=== PATIENT | female | born 1940 | race Caucasian/White ===

== ENCOUNTER 2018-01-24 16:04 | Inpatient (IN) | payer MEDICARE, BC ==
[~2018-01-24] VITALS: Ht 160 cm; Wt 83.4 kg
[~2018-01-24 16:04] MED LIST: ASPI325 PO; ASPI325EC PO; ASPI81CH; ASPI81EC; Avapro300 MG; BACI500TO; BACI500TO OD; BENZ2 PO; Buspirone HCl7.5 MG PO; CALCA500CH PO; CALMAGZIN; CARV6.25 PO; CITA20; CLOP75; CLOP75 PO; CPAP; CYCL10 PO; Carvedilol12.5 MG PO; DESO.05TCA TP; DONE10 PO; ENSURE ORIGINA237 ML PO; ERGO400 PO; FLUC150A PO; GLUCHON; HALO5 PO; ICY HOT BALM; IRBE150; IRBE150 PO; IRBE75; ISOMON60ER PO; Isosorbide Mono60 MG PO; KETO10 PO; KETO120T TOP; KETO15TC TOP; LABE100; LABE100 PO; LORA1 PO; MULVITMIND PO; NITR.4SL SL; NYSTATIN; Norco 5-325 Ta1 EACH PO; OMACOR; OMEG1CAP30 PO; PRAV20 PO; PSYL5.85P PO; Pravastatin Sod40 MG PO; RANI150; RANI150 PO; RANO500T PO; ROSU5 PO; Refresh Eye Dr1 EACH BOTHEYES; TIMO.5OPSO; VALSARTAN160 MG PO; VENL37.5ER PO; [UNRECOGNIZED DRUG - OTHER]
[2018-01-24 17:17] LABS: BASOPHILS ABSOLUTE AUTO 0.05 K/mm3 (0.00-0.23); BASOPHILS PERCENT AUTO 1 % (0-2); EOSINOPHILS ABSOLUTE AUTO 0.24 K/mm3 (0.00-0.68); EOSINOPHILS PERCENT AUTO 3 % (0-6); Hematocrit 44.3 % (33.0-51.0); Hemoglobin 14.4 g/dL (11.5-16.0); IMMATURE GRAN ABSOLUTE AUTO 0.02 K/mm3 (0.00-0.10); IMMATURE GRAN PERCENT AUTO 0 % (0-1); LYMPHOCYTES ABSOLUTE AUTO 1.44 K/mm3 (0.84-5.20); LYMPHOCYTES PERCENT AUTO 20 % (21-46); MONOCYTES ABSOLUTE AUTO 0.69 K/mm3 (0.16-1.47); MONOCYTES PERCENT AUTO 10 % (4-13); Mean Corpuscular HGB 29.4 pg (26.0-34.0); Mean Corpuscular HGB Conc 32.5 g/dL (31.5-36.5); Mean Corpuscular Volume 91 fL (80-100); Mean Platelet Volume 10.9 fL (9.1-12.4); NEUTROPHILS ABSOLUTE AUTO 4.74 K/mm3 (1.96-9.15); NEUTROPHILS PERCENT AUTO 66 % (41-73); Platelet Count 202 K/mm3 (150-400); RDW Coefficient Variation 13.5 % (11.7-14.2); RDW Standard Deviation 45.1 fL (35.1-46.3); Red Blood Cell Count 4.89 M/mm3 (3.80-5.20); White Blood Cell Count 7.18 K/mm3 (4.00-11.30)
[2018-01-24 17:33] LABS: Albumin, Blood 3.6 g/dL (3.4-5.0); Albumin/Globulin Ratio 0.9 (0.8-1.8); Bilirubin, Total 0.7 mg/dL (0.1-1.0); Bun/Creatinine Ratio 21.2 (12.0-20.0); Calcium, Blood 9.2 mg/dL (8.5-10.1); Creatinine, Blood 1.18 mg/dL (0.40-1.00); Potassium, Blood 4.1 mmol/L (3.5-5.5); Total Protein, Blood 7.6 g/dL (6.4-8.2); Troponin I 0.049 ng/mL (0.000-0.040)
[2018-01-24] MEDS ORDERED: PRAV20 PO (17:36)
[2018-01-24] MEDS ORDERED: NITR.4SL SL (17:36)
[2018-01-24] MEDS ORDERED: LOSA25 PO (17:36)
[2018-01-24 20:04] LABS: Source, Urine Clean Catch
[2018-01-24 20:08] LABS: Appearance, Urine Clear (Clear); Bilirubin, Urine Neg (Neg); Blood, Urine Neg (Neg); Color, Urine Yellow (P-Yellow); Glucose Qualitative, Urine Neg (Neg); Ketones, Urine Neg (Neg); Leukocyte Esterase, Urine 1+ (Neg); Nitrite, Urine Neg (Neg); Protein, Urine Neg (Neg); Specific Gravity, Urine 1.015 (1.003-1.022); Urobilinogen, Urine NORM (Normal); pH, Urine 6.5 (5.0-8.0)
[2018-01-24 20:19] LABS: Bacteria Rare /hpf; Red Blood Cells, Urine Not Seen /hpf (0-2); Squamous Epithelial Cells Few /hpf (Few)
[2018-01-24 21:28] LABS: Prothrombin Time Results 10.3 Sec (9.7-11.5)
[2018-01-25 05:36] LABS: Hematocrit 39.5 % (33.0-51.0); Hemoglobin 12.9 g/dL (11.5-16.0); Mean Corpuscular HGB 29.3 pg (26.0-34.0); Mean Corpuscular HGB Conc 32.7 g/dL (31.5-36.5); Mean Corpuscular Volume 90 fL (80-100); Mean Platelet Volume 11.1 fL (9.1-12.4); Platelet Count 176 K/mm3 (150-400); RDW Coefficient Variation 13.4 % (11.7-14.2); RDW Standard Deviation 44.7 fL (35.1-46.3); Red Blood Cell Count 4.41 M/mm3 (3.80-5.20); White Blood Cell Count 7.14 K/mm3 (4.00-11.30)
[2018-01-25 06:16] LABS: Bun/Creatinine Ratio 22.3 (12.0-20.0); Calcium, Blood 9.2 mg/dL (8.5-10.1); Creatinine, Blood 1.12 mg/dL (0.40-1.00); Potassium, Blood 3.8 mmol/L (3.5-5.5)
[2018-01-26 06:05] LABS: BASOPHILS ABSOLUTE AUTO 0.06 K/mm3 (0.00-0.23); BASOPHILS PERCENT AUTO 1 % (0-2); EOSINOPHILS ABSOLUTE AUTO 0.17 K/mm3 (0.00-0.68); EOSINOPHILS PERCENT AUTO 2 % (0-6); Hematocrit 41.6 % (33.0-51.0); Hemoglobin 13.6 g/dL (11.5-16.0); IMMATURE GRAN ABSOLUTE AUTO 0.02 K/mm3 (0.00-0.10); IMMATURE GRAN PERCENT AUTO 0 % (0-1); LYMPHOCYTES ABSOLUTE AUTO 1.69 K/mm3 (0.84-5.20); LYMPHOCYTES PERCENT AUTO 20 % (21-46); MONOCYTES ABSOLUTE AUTO 0.75 K/mm3 (0.16-1.47); MONOCYTES PERCENT AUTO 9 % (4-13); Mean Corpuscular HGB 29.5 pg (26.0-34.0); Mean Corpuscular HGB Conc 32.7 g/dL (31.5-36.5); Mean Corpuscular Volume 90 fL (80-100); Mean Platelet Volume 10.9 fL (9.1-12.4); NEUTROPHILS ABSOLUTE AUTO 5.66 K/mm3 (1.96-9.15); NEUTROPHILS PERCENT AUTO 68 % (41-73); Platelet Count 187 K/mm3 (150-400); RDW Standard Deviation 46.5 fL (35.1-46.3); Red Blood Cell Count 4.61 M/mm3 (3.80-5.20); White Blood Cell Count 8.35 K/mm3 (4.00-11.30)
[2018-01-26 06:27] LABS: Calcium, Blood 8.9 mg/dL (8.5-10.1); Creatinine, Blood 1.28 mg/dL (0.40-1.00); Potassium, Blood 3.9 mmol/L (3.5-5.5)
[2018-01-26] MEDS ORDERED: CLOP75 PO (14:58)
[2018-01-26] MEDS ORDERED: ACET325 PO (14:58)
[2018-01-26] MEDS ORDERED: LIDO700A20 TOP (14:59)
[2018-01-26] MEDS ORDERED: ONDA4ODT PO (14:59)
[2018-01-26] MEDS ORDERED: PANT40 PO (15:00)
== END 2018-01-26 15:45 | disposition home or self-care (01) | DRG 281 ==
LOC: ER 16:04 → PCU 16:05 → ER 18:46 → PCU 18:46
PROVIDERS: Emergency Medicine; Family Medicine; Nurse Practitioner Acute Care
PROC: B2111ZZ Fluoroscopy of Multiple Coronary Arteries using Low Osmolar Contrast (ICD-10-PCS; principal; 2018-01-25)
DX: I21.4 Non-ST elevation (NSTEMI) myocardial infarction (principal); I25.810 Atherosclerosis of coronary artery bypass graft(s) without angina pectoris; I65.29 Occlusion and stenosis of unspecified carotid artery; I36.1 Nonrheumatic tricuspid (valve) insufficiency; F03.90 Unspecified dementia, unspecified severity, without behavioral disturbance, psychotic disturbance, mood disturbance, and anxiety; Z95.1 Presence of aortocoronary bypass graft; I34.0 Nonrheumatic mitral (valve) insufficiency; E78.5 Hyperlipidemia, unspecified; G47.33 Obstructive sleep apnea (adult) (pediatric); I73.00 Raynaud's syndrome without gangrene; K21.9 Gastro-esophageal reflux disease without esophagitis; Z66 Do not resuscitate; E66.9 Obesity, unspecified; I12.9 Hypertensive chronic kidney disease with stage 1 through stage 4 chronic kidney disease, or unspecified chronic kidney disease; N18.2 Chronic kidney disease, stage 2 (mild); Z68.32 Body mass index [BMI] 32.0-32.9, adult; Z87.891 Personal history of nicotine dependence; Z79.82 Long term (current) use of aspirin; Z79.899 Other long term (current) drug therapy; Z88.8 Allergy status to other drugs, medicaments and biological substances; Z88.5 Allergy status to narcotic agent; Z88.7 Allergy status to serum and vaccine; Z95.0 Presence of cardiac pacemaker
CPT/HCPCS: 36415; 71046; 80048; 80053; 81001; 83880; 84484; 85025; 85027; 85610; 85730; 87086; 87147; 93005; 93010; 93306; 93455; 94660; 94762; 96374; 96376; 99285-25; C1769; C1894; G0378; J0360; J1644; J2250; J3010; J7030; Q9967

== ENCOUNTER 2018-03-14 07:19 | Day surgery (SDC) | payer MEDICARE, BC ==
[~2018-03-14] VITALS: Ht 154.9 cm; Wt 83.0 kg
[~2018-03-14 07:19] MED LIST changes: +ACET325 PO; +LIDO700A20 TOP; +LOSA25 PO; +ONDA4ODT PO; +PANT40 PO
== END 2018-03-14 09:45 | disposition home or self-care (01) ==
LOC: MHTC 07:19
DX: I25.5 Ischemic cardiomyopathy (principal); Z88.8 Allergy status to other drugs, medicaments and biological substances
CPT/HCPCS: 33284; J2250; J7040; J7120

== ENCOUNTER 2018-06-21 14:21 | Inpatient (IN) | payer MEDICARE, BC ==
[~2018-06-21] VITALS: Ht 160 cm; Wt 84.4 kg
[~2018-06-21 14:21] MED LIST changes: -Carvedilol12.5 MG PO; -LOSA25 PO; +LOSARTAN POTAS100 MG PO
[2018-06-21 15:27] LABS: BASOPHILS ABSOLUTE AUTO 0.02 K/mm3 (0.00-0.23); BASOPHILS PERCENT AUTO 0 % (0-2); EOSINOPHILS ABSOLUTE AUTO 0.02 K/mm3 (0.00-0.68); EOSINOPHILS PERCENT AUTO 0 % (0-6); Hematocrit 46.1 % (33.0-51.0); Hemoglobin 15.5 g/dL (11.5-16.0); IMMATURE GRAN ABSOLUTE AUTO 0.05 K/mm3 (0.00-0.10); IMMATURE GRAN PERCENT AUTO 1 % (0-1); LYMPHOCYTES ABSOLUTE AUTO 1.02 K/mm3 (0.84-5.20); LYMPHOCYTES PERCENT AUTO 9 % (21-46); MONOCYTES ABSOLUTE AUTO 0.99 K/mm3 (0.16-1.47); MONOCYTES PERCENT AUTO 9 % (4-13); Mean Corpuscular HGB 29.6 pg (26.0-34.0); Mean Corpuscular HGB Conc 33.6 g/dL (31.5-36.5); Mean Corpuscular Volume 88 fL (80-100); Mean Platelet Volume 11.8 fL (9.1-12.4); NEUTROPHILS ABSOLUTE AUTO 8.94 K/mm3 (1.96-9.15); NEUTROPHILS PERCENT AUTO 81 % (41-73); Platelet Count 158 K/mm3 (150-400); RDW Coefficient Variation 13.8 % (11.7-14.2); RDW Standard Deviation 44.6 fL (35.1-46.3); Red Blood Cell Count 5.24 M/mm3 (3.80-5.20); White Blood Cell Count 11.04 K/mm3 (4.00-11.30)
[2018-06-21] MEDS ORDERED: Pravastatin Sod80 MG PO (15:27)
[2018-06-21 16:08] LABS: Albumin, Blood 3.2 g/dL (3.4-5.0); Albumin/Globulin Ratio 0.7 (0.8-1.8); Bun/Creatinine Ratio 14.2 (12.0-20.0); Calcium, Blood 9.6 mg/dL (8.5-10.1); Creatinine, Blood 3.44 mg/dL (0.40-1.00); Globulin, Blood 4.6 g/dL (2.2-4.0); Total Protein, Blood 7.8 g/dL (6.4-8.2)
[2018-06-21 17:00] LABS: Magnesium, Blood 2.4 mg/dL (1.6-2.4); Phosphorus, Blood 3.1 mg/dL (2.5-4.9)
[2018-06-21] MEDS ORDERED: NITR.4SL SL (18:23)
--- NOTE | 2018-06-21 18:25 | NUR ---
PT ADMITTED PT ADMITTED AT 1755. PT IN STABLE CONDITION WITH VSS. PT ORIENTED TO ROOM. PT AWARE OF PT ROOM PLACEMENT. WILL CONTINUE TO MONITOR UNTIL TURNOVER UNTIL COMPLETE.
--- NOTE | 2018-06-21 20:37 | NUR ---
RT SETTING UP CPAP. KCL 29 MEQ INFUSING AT 100 mL/HR. PATIENT REPORTS SHE HAS HAD A LONG DAY AND WAS AGITATED MOST OF THE DAY. PATIENT REPORTS CALMING DOWN AND WANTS TV BACKGROUND NOISE TO HELP SLEEP. CALL LIGHT IN REACH.
[2018-06-21 21:07] LABS: Source, Urine Clean Catch
[2018-06-21 21:11] LABS: Appearance, Urine Clear (Clear); Bilirubin, Urine Neg (Neg); Blood, Urine 1+ (Neg); Color, Urine Yellow (P-Yellow); Glucose Qualitative, Urine Neg (Neg); Ketones, Urine Neg (Neg); Leukocyte Esterase, Urine 1+ (Neg); Nitrite, Urine Neg (Neg); Protein, Urine 1+ (Neg); Specific Gravity, Urine 1.015 (1.003-1.022); Urobilinogen, Urine NORM (Normal)
[2018-06-21 21:19] LABS: Bacteria Few /hpf; Red Blood Cells, Urine Not Seen /hpf (0-2); Squamous Epithelial Cells Few /hpf (Few)
--- NOTE | 2018-06-21 22:11 | NUR ---
UA COLLECTED AND RESPIRATORY PANEL SENT TO LAB.
[2018-06-21 23:28] LABS: Adenovirus Not Detected (NOT DETECT); Bordetella pertussis Not Detected (NOT DETECT); Chlamydophila pneumoniae Not Detected (NOT DETECT); Coronavirus 229E Not Detected (NOT DETECT); Coronavirus HKU1 Not Detected (NOT DETECT); Coronavirus NL63 Not Detected (NOT DETECT); Coronavirus OC43 Not Detected (NOT DETECT); Human Metapneumovirus Not Detected (NOT DETECT); Human Rhinovirus/Enterovirus Not Detected (NOT DETECT); Influenza A Not Detected (NOT DETECT); Influenza A/2009-H1 Not Detected (NOT DETECT); Influenza A/H1 Not Detected (NOT DETECT); Influenza A/H3 Detected (NOT DETECT); Influenza B Not Detected (NOT DETECT); Mycoplasma pneumoniae Not Detected (NOT DETECT); Parainfluenza Virus 1 Not Detected (NOT DETECT); Parainfluenza Virus 2 Not Detected (NOT DETECT); Parainfluenza Virus 3 Not Detected (NOT DETECT); Parainfluenza Virus 4 Not Detected (NOT DETECT); Respiratory Syncytial Virus Not Detected (NOT DETECT)
--- NOTE | 2018-06-21 23:36 | NUR ---
RESPIRATORY PANEL POSITIVE INFLUENZA A (H3). DROPLET PRECAUTIONS.
--- NOTE | 2018-06-21 23:45 | NUR ---
PATIENT ON CPAP STATING 96% ON CONTINUOUS PULSE OXIMETRY. KCL 20 MEQ INFUSING AT 100 mL/HR. DROPLET PRECAUTIONS. CALL LIGHT IN REACH.
--- NOTE | 2018-06-22 00:55 | NUR ---
TAMIFLU 30 MG GIVEN PER EMAR.
--- NOTE | 2018-06-22 03:39 | NUR ---
SHIFT SUMMARY PATIENT HAD NO ACUTE CHANGES THIS SHIFT. AXOX 3 W/CONFUSION AT TIMES. PATIENT WILL REPEAT STORY OF HOW SHE CAME TO THE FACILITY X 6. RESPIRATORY PANEL AND UA SENT TO LAB. POSITIVE FOR INFLUENZA A. DROPLET PRECAUTIONS AND STARTED ON TAMIFLU. PIV REMAINS INTACT. KCL INFUSING AT 100 mL/HR. RT IN TO SET UP CPAP AND CONTINUOUS PULSE OXIMETRY STATING 96% ON RA. DENIES PAIN, SOB, AND N/V. PATIENT AGITATED AT START OF SHIFT AND IS NOW COOPERATIVE WITH CARE. SHE REPORTS SHE HAD A LONG DAY. CALL LIGHT IN REACH. BED ALARM ACTIVATED. WILL CONTINUE TO MONITOR UNTIL DAY SHIFT NURSE ASSUMES CARE.
[2018-06-22 05:16] LABS: Hematocrit 39.6 % (33.0-51.0); Hemoglobin 13.3 g/dL (11.5-16.0); Mean Corpuscular HGB 29.2 pg (26.0-34.0); Mean Corpuscular HGB Conc 33.6 g/dL (31.5-36.5); Mean Corpuscular Volume 87 fL (80-100); Mean Platelet Volume 11.2 fL (9.1-12.4); Platelet Count 180 K/mm3 (150-400); RDW Standard Deviation 45.1 fL (35.1-46.3); Red Blood Cell Count 4.55 M/mm3 (3.80-5.20); White Blood Cell Count 9.83 K/mm3 (4.00-11.30)
[2018-06-22 05:38] LABS: Bun/Creatinine Ratio 18.7 (12.0-20.0); Calcium, Blood 8.4 mg/dL (8.5-10.1); Creatinine, Blood 3.37 mg/dL (0.40-1.00); Magnesium, Blood 2.2 mg/dL (1.6-2.4); Potassium, Blood 4.1 mmol/L (3.5-5.5)
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
--- NOTE | 2018-06-22 15:20 | NUR ---
COUGH PT HAS PERSISTANT COUGH WITH NO PRODUCTION. PT STATES THAT IT HURTS HER TO COUGH. DR. WRIGHT NOTIFIED & ORDERED ROBITUSSIN. TYLENOL ALSO ORDERED FOR PT PAIN/FEVER NEEDED.
--- NOTE | 2018-06-22 17:36 | NUR ---
SHIFT SUMMARY PT HAS PERIODIC EPISODES OF AGITATION. PT FREQUENTLY FORGETS WHY SHE IS IN THE HOSPITAL. WITH REORIENTATION PT DOES NOT UNDERSTAND WHY SHE IS HERE EITHER. PT CHANGED TO FULL CODE PER REQUEST BY DR. WRIGHT. PT HAS LIGHT APPETITE. PT CURRENTLY RECIEVING LR AT 100ML/HR INFUSION. PT GIVEN ZYPREXA THIS SHIFT TO ASSIST WITH AGITATION & OUTBURSTS. PT WALKING IN ROOM WITH SUPERVISION. PT STURDY ON HER FEET. NO OTHER CHANGES IN ASSESSMENT AT THIS TIME. VSS. WILL CONTINUE TO MONITOR UNTIL TURNOVER IS COMPLETE.
--- NOTE | 2018-06-22 19:39 | NUR ---
PATIENT INCREASED AGITATION. BED EXIT X 2 IN FIVE MINUTES. PATIENT PULLED PULSE OXIMETRY OFF. PULLING AT IV CORDS AND LINES. PATIENT NOT REORIENTING. BACK IN BED BED ALARM ACTIVATED.
--- NOTE | 2018-06-22 19:59 | NUR ---
BED EXIT. PATIENT CONFUSED AND TRYING TO EXIT BED. NOT ABLE TO REORIENT AT THIS TIME.
--- NOTE | 2018-06-22 20:21 | NUR ---
BED EXIT. PATIENT EXIT BED PULLING AT IV CORDS AND PULSE OXIMETRY. PATIENT REPORTS SHE WANTS TO GO TO BATHROOM WHEN SHE WAS JUST UP AND WENT WITH SMALL PARTS SHAPER OPERATOR/RN. PATIENT NOW STATES SHE IS NOT SURE WHAT SHE WANTS AND WENT BACK INTO BED. BED ALARM ACTIVATED. NOT ABLE TO ORIENT.
--- NOTE | 2018-06-22 23:52 | NUR ---
PATIENT COUGHING. GUAIFENSIN GIVEN PER EMAR. PATIENT BACK INTO BED. BED ALARM ACTIVATED.
--- NOTE | 2018-06-23 03:57 | NUR ---
SHIFT SUMMARY PATIENT AGITATED AT START OF SHIFT AND BED EXIT OVER FIVE TIMES. PULLED PULSE OXIMETRY OFF X 3. PULLED AT IV LINES AND LR STOPPED. PULLED TELE LEADS OFF. PATIENT WAS NOT ABLE TO FOLLOW DIRECTION AT THAT TIME. PATIENT MOSTLY ACTIVATED BED ALARM TO USE BSC EVEN WHEN SHE WAS JUST THERE ONE TIME WITH ESCROW SECRETARY/RN. PATIENT PULLED SELF BACK IN BED AND REPORTED SHE DID NOT KNOW WHAT SHE NEEDED. COUGHING EPISODE X ONE AND GUAFENISIN GIVEN PER EMAR. PIV REMAINS IN TACH. WRITER EDITOR REPORTS NSR, 1ST DEGREE, BBB AT 60'S. DENIES PAIN, SOB, AND N/V. ZYPEXA GIVEN X 1 AT START OF SHIFT FOR AGITATION. PATIENT FINALLY ABLE TO SLEEP AND LESS AGITATION. VSS/AFEBRILE. CALL LIGHT IN REACH. WILL CONTINUE TO MONITOR UNTIL DAY SHIFT NURSE ASSUMES CARE.
[2018-06-23 06:01] LABS: Bun/Creatinine Ratio 22.1 (12.0-20.0); Calcium, Blood 8.7 mg/dL (8.5-10.1); Creatinine, Blood 2.62 mg/dL (0.40-1.00)
--- NOTE | 2018-06-23 13:39 | NUR ---
PT UPDATE PT SLEPT MOST THE MORNING. PT JUST WOKE & ATE LUNCH. PT NOW AGITATED & DOESN'T UNDERSTAND WHY SHE IS HERE. DR. WRIGHT AWARE OF PT BEHAVIOR. PT STATED THAT SHE "NEEDS A WATER SERVER" BECAUSE SHE THINKS SHE IS BEING HELD HERE AGAINST HER WILL. DR. WRIGHT & THIS RN EXPLAINED WHY THE PT NEEDS TO BE HERE & HOW SHE IS BEING TREATED. PRN ZYPREXA GIVEN AT THIS TIME. WILL CONTINUE TO MONITOR.
--- NOTE | 2018-06-23 17:09 | NUR ---
SHIFT SUMMARY NO CHANGES IN ASSESSMENT AT THIS TIME. PT HAS LOW GRADE FEVER AT 99.3. PT BP ELEVATED THIS AFTERNOON, BUT IMPROVED FROM THIS AM. AFTERNOON COREG GIVEN. PT CONTINUES TO HAVE CONFUSION & FORGETS WHY SHE IS HERE. PT EXPECTED TO DC TOMORROW PER DR. WRIGHT. FAMILY AWARE OF THIS PLAN. NO OTHER CHANGES IN ASSESSMENT. PRN ZYPREXAGIVEN TWICE THIS SHIFT. PT CURRENTLY RESTING IN BED. PT REFUSED SHOWER & TO GET UP IN CHAIR THROUGHOUT THIS SHIFT. WILL CONTINUE TO MONITOR UNTIL TURNOVER IS COMPLETE.
--- NOTE | 2018-06-24 06:00 | NUR ---
SHIFT SUMMARY: NO ACUTE EVENTS TONIGHT. PT SLEPT T/O THE NIGHT. ADMINSTERED PRN ZYPREXA FOR EPISODE OF AGITATION AND RESTLESSNESS AT START OF SHIFT. PT RESPONDED WELL. SBA TO BR; STEADY GAIT; CONFUSION AND IMPUSLIVITY, BED ALARM ON DURING THE NIGHT FOR SAFETY. PT IS ALERT TO SELF ONLY, WHICH IS ABOUT BASELINE PER DAYSHIFT RN REPORT. PLEASANT AND COOPERATIVE c CARE. ROBITUSSIN ADMINISTERED 1X FOR COUGH PER PT REQUEST; MED PULLED TWICE FROM [facility]; WASTED FIRST DOSE PT SPILT ON SELF. PT RECIEVED RELIEF FROM COUGH c THIS MED. PLAN TO D/C BACK TO HOME c . WILL CONT TO MONITOR AND PROVIDE CARE UNTIL PRESUMED BY ONCOMING RN.
[2018-06-24 06:28] LABS: Bun/Creatinine Ratio 21.3 (12.0-20.0); Calcium, Blood 9.2 mg/dL (8.5-10.1); Creatinine, Blood 2.07 mg/dL (0.40-1.00)
[2018-06-24] MEDS ORDERED: ASPI81CH PO (11:06)
[2018-06-24] MEDS ORDERED: CEFU250T47 PO (11:07)
[2018-06-24] MEDS ORDERED: Tamiflu30 MG PO (11:08)
[2018-06-24] MEDS ORDERED: AMLO5 PO (11:08)
[2018-06-24] MEDS ORDERED: Q-Tussin100 MG/5 M PO (11:08)
--- NOTE | 2018-06-24 13:51 | NUR ---
DISCHARGE PT DISCHARGED TO HOME. THIS RN EXPLAINED DISCHARGE INSTRUCTIONS AND MEDICATIONS TO PT AND PT'S SPOUSE. THEY REPORT THEY UNDERSTAND. PT'S MEDICATIONS FAXED TO [facility] PER PT REQUEST. PT TRANSFERRED TO PRIVATE VEHICLE VIA WHEELCHAIR BY F[employer] OPT[employer] ENGINEER. PT'S BELONGINGS WITH PT AND PT'S SPOUSE.
== END 2018-06-24 13:34 | disposition home or self-care (01) | DRG 682 ==
LOC: ER 14:21 → MEDS 17:01 → ENPENDDIS 06-24 10:00 → MEDS 06-24 13:34
PROVIDERS: Internal Medicine; Nurse Practitioner Acute Care; ADMIT Internal Medicine
DX: N17.9 Acute kidney failure, unspecified (principal); G92 Toxic encephalopathy; N39.0 Urinary tract infection, site not specified; I12.0 Hypertensive chronic kidney disease with stage 5 chronic kidney disease or end stage renal disease; F03.91 Unspecified dementia, unspecified severity, with behavioral disturbance; J11.1 Influenza due to unidentified influenza virus with other respiratory manifestations; E78.5 Hyperlipidemia, unspecified; N18.5 Chronic kidney disease, stage 5; I25.5 Ischemic cardiomyopathy; G47.33 Obstructive sleep apnea (adult) (pediatric); Z95.1 Presence of aortocoronary bypass graft; I25.10 Atherosclerotic heart disease of native coronary artery without angina pectoris; E86.0 Dehydration; K21.9 Gastro-esophageal reflux disease without esophagitis; I73.00 Raynaud's syndrome without gangrene; Z87.891 Personal history of nicotine dependence; Z66 Do not resuscitate
CPT/HCPCS: 36415; 70450; 71046; 76770; 80048; 80053; 81001; 82550; 82570; 82947; 83735; 84100; 84300; 85025; 85027; 87086; 87147; 87486; 87581; 87633; 87798; 93005; 93010; 94660; 94762; 96360; 97110; 97161; 99285-25; J1650; J3480; J7120

== ENCOUNTER 2018-08-06 13:39 | Observation (INO) | payer MEDICARE, BC ==
[~2018-08-06] VITALS: Ht 160 cm; Wt 80.1 kg
[~2018-08-06 13:39] MED LIST changes: +ASPI81CH PO; +CEFU250T47 PO; -DONE10 PO; +Pravastatin Sod80 MG PO; +Q-Tussin100 MG/5 M PO; +Tamiflu30 MG PO
[2018-08-06 14:43] LABS: BASOPHILS ABSOLUTE AUTO 0.09 K/mm3 (0.00-0.23); BASOPHILS PERCENT AUTO 1 % (0-2); EOSINOPHILS ABSOLUTE AUTO 0.25 K/mm3 (0.00-0.68); EOSINOPHILS PERCENT AUTO 4 % (0-6); Hematocrit 44.4 % (33.0-51.0); Hemoglobin 14.8 g/dL (11.5-16.0); IMMATURE GRAN ABSOLUTE AUTO 0.02 K/mm3 (0.00-0.10); IMMATURE GRAN PERCENT AUTO 0 % (0-1); LYMPHOCYTES ABSOLUTE AUTO 1.19 K/mm3 (0.84-5.20); LYMPHOCYTES PERCENT AUTO 17 % (21-46); MONOCYTES ABSOLUTE AUTO 0.86 K/mm3 (0.16-1.47); MONOCYTES PERCENT AUTO 12 % (4-13); Mean Corpuscular HGB 29.4 pg (26.0-34.0); Mean Corpuscular HGB Conc 33.3 g/dL (31.5-36.5); Mean Platelet Volume 11.7 fL (9.1-12.4); NEUTROPHILS ABSOLUTE AUTO 4.55 K/mm3 (1.96-9.15); NEUTROPHILS PERCENT AUTO 65 % (41-73); Platelet Count 249 K/mm3 (150-400); RDW Coefficient Variation 14.7 % (11.7-14.2); RDW Standard Deviation 47.5 fL (35.1-46.3); Red Blood Cell Count 5.04 M/mm3 (3.80-5.20); White Blood Cell Count 6.96 K/mm3 (4.00-11.30)
[2018-08-06 14:45] LABS: Mean Corpuscular Volume 88 fL (80-100)
[2018-08-06 14:55] LABS: Albumin, Blood 3.5 g/dL (3.4-5.0); Albumin/Globulin Ratio 0.8 (0.8-1.8); Bilirubin, Total 1.1 mg/dL (0.1-1.0); Bun/Creatinine Ratio 14.2 (12.0-20.0); Calcium, Blood 9.7 mg/dL (8.5-10.1); Creatinine, Blood 1.27 mg/dL (0.40-1.00); Globulin, Blood 4.3 g/dL (2.2-4.0); Potassium, Blood 3.7 mmol/L (3.5-5.5); Total Protein, Blood 7.8 g/dL (6.4-8.2); Troponin I 0.074 ng/mL (0.000-0.040)
[2018-08-06] MEDS ORDERED: AMLO5 PO (16:27)
[2018-08-06] MEDS ORDERED: DONE10 PO (16:27)
[2018-08-06] MEDS ORDERED: CARV6.25 PO (18:50)
--- NOTE | 2018-08-06 20:17 | NUR ---
1900 ASSUMED CARE OF ANDER, LAYING IN BED TALKING ABOUT BEING UNSURE WGYR SHE IS HERE. SEE Entelo FOR FULL ASSESSMENT. BED IN LOW POSITION, CALL LIGHT IN REACH, PLANS FOR THIS SHIFT DISSCUSSED.
[2018-08-06 20:37] LABS: International Normalized Ratio 0.99; Prothrombin Time Results 10.5 Sec (9.7-11.5)
[2018-08-06 22:18] LABS: Source, Urine Clean Catch
[2018-08-06 22:20] LABS: Bilirubin, Urine Neg (Neg); Blood, Urine Neg (Neg); Glucose Qualitative, Urine Neg (Neg); Ketones, Urine Neg (Neg); Leukocyte Esterase, Urine 2+ (Neg); Nitrite, Urine Neg (Neg); Protein, Urine 2+ (Neg); Urobilinogen, Urine NORM (Normal)
[2018-08-06 22:22] LABS: Appearance, Urine Clear (Clear); Color, Urine Yellow (P-Yellow)
[2018-08-06 22:27] LABS: Bacteria Mod /hpf; Hyaline Casts 0-2 /lpf (0-2); Red Blood Cells, Urine 0-2 /hpf (0-2); Squamous Epithelial Cells Few /hpf (Few)
--- NOTE | 2018-08-07 00:20 | NUR ---
4313 RAPID RESPONSE CALL BY FELLOW STAFF, PATIENT ATTEMPTED TO GET UP FOM BED AND PASSED OUT. PCT WAS AT SIDE AND COAXED HER ON TO BED BEFORE SHE FELL, HR DROPPED SUDDENLY TO 50 BPM AND BP DROPPED TO 90'S SYSTOLIC. PATIENT PUT IN [place] POSTION AND STARTED REPONDING TO VERB STIMULI. STATES SHE JUST WANTED TO SLEEP AND DID NOT REMEMBER WHAT HAPPENED. BP RETURNED TO ABOVE 100 SYSTOLIC, HR 70 YO 80'S. BED PUT IN LOW POSTION, CALL LIGHT IN REACH BED ALARM ON, WILL MONITOR.
[2018-08-07 02:12] LABS: Hematocrit 38.9 % (33.0-51.0); Hemoglobin 12.6 g/dL (11.5-16.0); Mean Corpuscular HGB 29.2 pg (26.0-34.0); Mean Corpuscular HGB Conc 32.4 g/dL (31.5-36.5); Mean Corpuscular Volume 90 fL (80-100); Mean Platelet Volume 10.8 fL (9.1-12.4); Platelet Count 191 K/mm3 (150-400); RDW Coefficient Variation 14.9 % (11.7-14.2); RDW Standard Deviation 49.8 fL (35.1-46.3); Red Blood Cell Count 4.31 M/mm3 (3.80-5.20); White Blood Cell Count 7.51 K/mm3 (4.00-11.30)
[2018-08-07 02:30] LABS: Bun/Creatinine Ratio 15.3 (12.0-20.0); Calcium, Blood 8.9 mg/dL (8.5-10.1); Creatinine, Blood 1.57 mg/dL (0.40-1.00); Potassium, Blood 3.7 mmol/L (3.5-5.5)
--- NOTE | 2018-08-07 11:29 | NUR ---
Echocardiogram completed.
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
--- NOTE | 2018-08-07 18:10 | NUR ---
EVENING NOTE PT AWAKE AND ALERT TO SELF. SHE REALLY ENJOYED HER NAP. SITTING UP EATING DINNER. EVENING COREG GIVEN. NO SYNCOPAL EPISODES TODAY. BED ALARM ON. PT UP TO BSC TO VOID. TOLERATING WELL. GAIT STEADY. CONTINUE POT.
[2018-08-08 04:14] LABS: BASOPHILS ABSOLUTE AUTO 0.04 K/mm3 (0.00-0.23); BASOPHILS PERCENT AUTO 1 % (0-2); EOSINOPHILS ABSOLUTE AUTO 0.53 K/mm3 (0.00-0.68); EOSINOPHILS PERCENT AUTO 9 % (0-6); Hemoglobin 12.7 g/dL (11.5-16.0); IMMATURE GRAN ABSOLUTE AUTO 0.01 K/mm3 (0.00-0.10); IMMATURE GRAN PERCENT AUTO 0 % (0-1); LYMPHOCYTES ABSOLUTE AUTO 1.15 K/mm3 (0.84-5.20); LYMPHOCYTES PERCENT AUTO 20 % (21-46); MONOCYTES ABSOLUTE AUTO 0.65 K/mm3 (0.16-1.47); MONOCYTES PERCENT AUTO 11 % (4-13); Mean Corpuscular HGB 29.2 pg (26.0-34.0); Mean Corpuscular HGB Conc 32.6 g/dL (31.5-36.5); Mean Corpuscular Volume 90 fL (80-100); Mean Platelet Volume 10.7 fL (9.1-12.4); NEUTROPHILS ABSOLUTE AUTO 3.41 K/mm3 (1.96-9.15); NEUTROPHILS PERCENT AUTO 59 % (41-73); Platelet Count 194 K/mm3 (150-400); RDW Coefficient Variation 15.1 % (11.7-14.2); RDW Standard Deviation 50.4 fL (35.1-46.3); Red Blood Cell Count 4.35 M/mm3 (3.80-5.20); White Blood Cell Count 5.79 K/mm3 (4.00-11.30)
[2018-08-08 04:31] LABS: Bun/Creatinine Ratio 17.8 (12.0-20.0); Calcium, Blood 9.2 mg/dL (8.5-10.1); Creatinine, Blood 1.46 mg/dL (0.40-1.00); Potassium, Blood 4.1 mmol/L (3.5-5.5)
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
--- NOTE | 2018-08-08 15:45 | NUR ---
discharge NOte: Pt has discharge orders. Her and her were given discharge instructions. Pt states "I still don't even know why I was here, and he just thinks it is funny!" Pt still very upset and aggitated about being here. Tried to calm Pt, but she seems very fixated. Went over dishcarge medicaions and follow up appointments with Pt and her . Pt arguing about medicaion dosages but , who manages her medicaions, denies questions and verbalizes understanding. He also verbalized understanding of F/U appointments. IV discontinued and cath intact. Pt assisted by CAGE CASHIER with getting dressed. Left via W/C. Stable at time of discharge.
== END 2018-08-08 15:50 | disposition home or self-care (01) ==
LOC: ER 13:39 → ERHOLD 13:40 → PCU 18:25
PROVIDERS: Internal Medicine; Nurse Practitioner Acute Care; ADMIT Hospitalist
DX: R55 Syncope and collapse (principal); R77.8 Other specified abnormalities of plasma proteins; I12.9 Hypertensive chronic kidney disease with stage 1 through stage 4 chronic kidney disease, or unspecified chronic kidney disease; N18.3 Chronic kidney disease, stage 3 (moderate); I25.10 Atherosclerotic heart disease of native coronary artery without angina pectoris; E78.5 Hyperlipidemia, unspecified; K21.9 Gastro-esophageal reflux disease without esophagitis; G47.33 Obstructive sleep apnea (adult) (pediatric); F03.90 Unspecified dementia, unspecified severity, without behavioral disturbance, psychotic disturbance, mood disturbance, and anxiety; Z95.1 Presence of aortocoronary bypass graft; Z79.899 Other long term (current) drug therapy; Z79.82 Long term (current) use of aspirin; Z79.01 Long term (current) use of anticoagulants; Z88.5 Allergy status to narcotic agent; Z88.8 Allergy status to other drugs, medicaments and biological substances; Z87.891 Personal history of nicotine dependence
CPT/HCPCS: 36415; 71046; 71260; 80048; 80053; 81001; 83735; 83880; 84484; 85025; 85027; 85379; 85610; 87086; 93005; 93010; 93306; 93880; 96372; 96374-59; 99285-25; C9113; G0378; J1650; J2405; J7030; Q9967

== ENCOUNTER 2018-09-20 11:47 | Emergency (ER) | payer MEDICARE, BC ==
[~2018-09-20] VITALS: Ht 160 cm; Wt 81.7 kg
[~2018-09-20 11:47] MED LIST changes: +AMLO5 PO; +DONE10 PO
[2018-09-20] MEDS ORDERED: Aspir 8181 MG PO (12:03)
[2018-09-20] MEDS ORDERED: AMLO5 PO (12:35)
== END 2018-09-20 13:38 | disposition home or self-care (01) ==
LOC: ER 11:47
DX: M25.562 Pain in left knee (principal); M25.552 Pain in left hip; I10 Essential (primary) hypertension; J44.9 Chronic obstructive pulmonary disease, unspecified; E78.5 Hyperlipidemia, unspecified; K21.9 Gastro-esophageal reflux disease without esophagitis; Z88.5 Allergy status to narcotic agent; Z79.899 Other long term (current) drug therapy
CPT/HCPCS: 73502; 73562-LT; 99283-25

== ENCOUNTER 2019-03-07 08:30 | Day surgery (SDC) | payer MEDICARE, BC ==
[~2019-03-07 08:30] MED LIST changes: +Aspir 8181 MG PO
--- NOTE | 2019-03-07 09:10 | NUR ---
ADMISSION STARTED AT THIS TIME. PATIENT VERY CONFUSED FOCUSING ON PAST WITH THINGS BEING STOLEN. REPORTS PATIENT HAS DRANK MOST OF PREP AND SAYS PATIENT HAS HAD MANY BOWELL MOVEMENTS.
--- NOTE | 2019-03-07 10:11 | NUR ---
03/07/19 1011 WON WILKINSON History, Chart, Medications and Allergies reviewed before start of procedure.3-LEAD EKG REVIEWED WITH PHYSICIAN PRIOR TO START OF PROCEDURE.O2 VIA N/C INTACT THROUGHOUT SEDATION/PROCEDURE. O2 VIA N/C INTACT THROUGHOUT SEDATION/PROCEDURE.See Anesthesia record
--- NOTE | 2019-03-07 10:50 | NUR ---
PT TO STEP. DENIES ANY COPLAINTS. AT BEDSIDE.
--- NOTE | 2019-03-07 10:58 | NUR ---
REPORT TO FRANNIE HALE. ANGEL GRACE.
--- NOTE | 2019-03-07 11:17 | NUR ---
ASSUMED CARE OF PATIENT AND REPORT FROM ENRICO FOY RN. Patient up to Ambulate independently. Gait steady. Patient States Post-Procedure ride home has been arranged. Discharged via wheelchair to private car for ride home. Discharge instructions reviewed with patient. Patient verbalizes understanding. Copy given to patient to take home. ALL BELONINGS RETURNED TO PATIENT.
== END 2019-03-07 23:58 | disposition home or self-care (01) ==
LOC: ORSCMMR 08:30 → ORD 09:30 → ORSCMMR 23:58
PROVIDERS: Internal Medicine Gastroenterology
PROC: 0DBK8ZX Excision of Ascending Colon, Via Natural or Artificial Opening Endoscopic, Diagnostic (ICD-10-PCS; principal; 2019-03-07 09:30)
PROC: 0DBB8ZX Excision of Ileum, Via Natural or Artificial Opening Endoscopic, Diagnostic (ICD-10-PCS; principal; 2019-03-07 09:30)
PROC: 0DBL8ZX Excision of Transverse Colon, Via Natural or Artificial Opening Endoscopic, Diagnostic (ICD-10-PCS; principal; 2019-03-07 09:30)
PROC: 0DBH8ZX Excision of Cecum, Via Natural or Artificial Opening Endoscopic, Diagnostic (ICD-10-PCS; principal; 2019-03-07 09:30)
PROC: 0DBN8ZX Excision of Sigmoid Colon, Via Natural or Artificial Opening Endoscopic, Diagnostic (ICD-10-PCS; principal; 2019-03-07 09:30)
DX: Z12.11 Encounter for screening for malignant neoplasm of colon (principal); D12.0 Benign neoplasm of cecum; K57.30 Diverticulosis of large intestine without perforation or abscess without bleeding; Z86.010 Personal history of colon polyps; I25.10 Atherosclerotic heart disease of native coronary artery without angina pectoris; Z95.1 Presence of aortocoronary bypass graft; G47.33 Obstructive sleep apnea (adult) (pediatric); Z79.01 Long term (current) use of anticoagulants; Z79.82 Long term (current) use of aspirin; Z79.899 Other long term (current) drug therapy
CPT/HCPCS: 88305; J2704; J7120

== ENCOUNTER 2019-04-13 14:43 | Emergency (ER) | payer MEDICARE, BC ==
[~2019-04-13] VITALS: Ht 160 cm; Wt 76.2 kg
[2019-04-13 14:59] LABS: BASOPHILS ABSOLUTE AUTO 0.06 K/mm3 (0.00-0.23); BASOPHILS PERCENT AUTO 1 % (0-2); EOSINOPHILS ABSOLUTE AUTO 0.18 K/mm3 (0.00-0.68); EOSINOPHILS PERCENT AUTO 2 % (0-6); Hematocrit 45.4 % (33.0-51.0); Hemoglobin 14.7 g/dL (11.5-16.0); IMMATURE GRAN ABSOLUTE AUTO 0.01 K/mm3 (0.00-0.10); IMMATURE GRAN PERCENT AUTO 0 % (0-1); LYMPHOCYTES ABSOLUTE AUTO 1.36 K/mm3 (0.84-5.20); LYMPHOCYTES PERCENT AUTO 18 % (21-46); MONOCYTES ABSOLUTE AUTO 0.51 K/mm3 (0.16-1.47); MONOCYTES PERCENT AUTO 7 % (4-13); Mean Corpuscular HGB 29.3 pg (26.0-34.0); Mean Corpuscular HGB Conc 32.4 g/dL (31.5-36.5); Mean Corpuscular Volume 91 fL (80-100); Mean Platelet Volume 11.4 fL (9.1-12.4); NEUTROPHILS PERCENT AUTO 72 % (41-73); Platelet Count 205 K/mm3 (150-400); RDW Coefficient Variation 13.2 % (11.7-14.2); Red Blood Cell Count 5.01 M/mm3 (3.80-5.20); White Blood Cell Count 7.62 K/mm3 (4.00-11.30)
[2019-04-13] MEDS ORDERED: LOSARTAN POTAS100 MG PO (15:16)
[2019-04-13] MEDS ORDERED: Nitrostat0.4 MG SL (15:17)
[2019-04-13 15:24] LABS: Albumin, Blood 3.7 g/dL (3.4-5.0); Albumin/Globulin Ratio 1.1 (0.8-1.8); Bilirubin, Total 0.9 mg/dL (0.1-1.0); Bun/Creatinine Ratio 22.5 (12.0-20.0); Calcium, Blood 9.6 mg/dL (8.5-10.1); Creatinine, Blood 1.38 mg/dL (0.40-1.00); Globulin, Blood 3.5 g/dL (2.2-4.0); Potassium, Blood 4.2 mmol/L (3.5-5.5); Total Protein, Blood 7.2 g/dL (6.4-8.2); Troponin I 0.045 ng/mL (0.000-0.040)
== END 2019-04-13 16:55 | disposition home or self-care (01) ==
LOC: ER 14:43
PROVIDERS: Emergency Medicine
DX: R55 Syncope and collapse (principal); Z88.5 Allergy status to narcotic agent; Z88.8 Allergy status to other drugs, medicaments and biological substances; Z79.82 Long term (current) use of aspirin; Z79.899 Other long term (current) drug therapy; I10 Essential (primary) hypertension; J44.9 Chronic obstructive pulmonary disease, unspecified; I25.10 Atherosclerotic heart disease of native coronary artery without angina pectoris; I71.4 Abdominal aortic aneurysm, without rupture; Z87.891 Personal history of nicotine dependence
CPT/HCPCS: 71046; 80053; 82947; 84484; 85025; 99284-25

== ENCOUNTER 2020-06-24 05:26 | Inpatient (IN) | payer OTHER, MEDICARE ==
[~2020-06-24] VITALS: Ht 160 cm; Wt 73.0 kg
[~2020-06-24 05:26] MED LIST changes: +Nitrostat0.4 MG SL
[2020-06-24 05:57] LABS: BASOPHILS ABSOLUTE AUTO 0.08 K/mm3 (0.00-0.23); BASOPHILS PERCENT AUTO 1 % (0-2); EOSINOPHILS ABSOLUTE AUTO 0.41 K/mm3 (0.00-0.68); EOSINOPHILS PERCENT AUTO 4 % (0-6); Hematocrit 45.6 % (33.0-51.0); Hemoglobin 15.1 g/dL (11.5-16.0); IMMATURE GRAN ABSOLUTE AUTO 0.03 K/mm3 (0.00-0.10); IMMATURE GRAN PERCENT AUTO 0 % (0-1); LYMPHOCYTES ABSOLUTE AUTO 0.98 K/mm3 (0.84-5.20); LYMPHOCYTES PERCENT AUTO 10 % (21-46); MONOCYTES ABSOLUTE AUTO 0.75 K/mm3 (0.16-1.47); MONOCYTES PERCENT AUTO 8 % (4-13); Mean Corpuscular HGB Conc 33.1 g/dL (31.5-36.5); Mean Corpuscular Volume 88 fL (80-100); NEUTROPHILS ABSOLUTE AUTO 7.42 K/mm3 (1.96-9.15); NEUTROPHILS PERCENT AUTO 77 % (41-73); RDW Coefficient Variation 14.8 % (11.7-14.2); RDW Standard Deviation 47.7 fL (35.1-46.3); Red Blood Cell Count 5.21 M/mm3 (3.80-5.20); White Blood Cell Count 9.67 K/mm3 (4.00-11.30)
[2020-06-24 06:06] LABS: Mean Platelet Volume 11.8 fL (9.1-12.4); Platelet Count 153 K/mm3 (150-400)
[2020-06-24 06:08] LABS: Albumin, Blood 3.4 g/dL (3.4-5.0); Albumin/Globulin Ratio 0.8 (0.8-1.8); Bilirubin, Total 0.7 mg/dL (0.1-1.0); Bun/Creatinine Ratio 25.2 (12.0-20.0); Calcium, Blood 9.5 mg/dL (8.5-10.1); Creatinine, Blood 1.27 mg/dL (0.40-1.00); Globulin, Blood 4.2 g/dL (2.2-4.0); Potassium, Blood 4.6 mmol/L (3.5-5.5); Total Protein, Blood 7.6 g/dL (6.4-8.2); Troponin I 0.162 ng/mL (0.000-0.040)
[2020-06-24 11:08] LABS: Prothrombin Time Results 10.7 Sec (9.7-11.5)
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
[2020-06-24 13:48] LABS: Influenza A, PCR NEGATIVE (NEGATIVE); Influenza B, PCR NEGATIVE (NEGATIVE); Resp Syncytial Virus, PCR NEGATIVE (NEGATIVE); SARS-Cov-2 (COVID-19) PCR, MMC NEGATIVE (NEGATIVE)
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
--- NOTE | 2020-06-24 15:47 | NUR ---
LEFT MESSAGE ON SON'S PHONE, [phone], TO HAVE HIM CALL HERE. POSSIBLY GET PHONE NUMBER FOR BROTHER IN [place].
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
--- NOTE | 2020-06-24 18:51 | NUR ---
PATIENT ALERT TO SELF AND WHERE SHE IS. HAS BEEN COOPERATIVE WITH CARE. NOT TRYING TO PULL OFF TELE OR PULL OUT IV. TALKS PLEASANTLY TO STAFF. EATTING DINNER. USES CALL LIGHT FOR HELP WITH BATHROOM. HERE. WAS IN ROOM TO TALK TO PATIENT. [facility]
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
[2020-06-25 05:58] LABS: Hematocrit 39.5 % (33.0-51.0); Hemoglobin 12.7 g/dL (11.5-16.0); Mean Corpuscular HGB 28.9 pg (26.0-34.0); Mean Corpuscular HGB Conc 32.2 g/dL (31.5-36.5); Mean Corpuscular Volume 90 fL (80-100); Platelet Count 189 K/mm3 (150-400); RDW Coefficient Variation 14.9 % (11.7-14.2); RDW Standard Deviation 49.2 fL (35.1-46.3); White Blood Cell Count 7.22 K/mm3 (4.00-11.30)
[2020-06-25 06:29] LABS: Bun/Creatinine Ratio 26.3 (12.0-20.0); Calcium, Blood 8.9 mg/dL (8.5-10.1); Creatinine, Blood 1.37 mg/dL (0.40-1.00); Potassium, Blood 3.8 mmol/L (3.5-5.5)
--- NOTE | 2020-06-25 12:12 | NUR ---
PATIENT JUST PICKED UP BY [facility] AND TAKEN DOWN FOR PROCEDURE.
--- NOTE | 2020-06-25 13:37 | NUR ---
GAVE REPORT TO DAMION ELLINGTON RN.
--- NOTE | 2020-06-25 15:10 | NUR ---
PT ARRIVED IN THE UNIT FROM [facility] POST ANGIO RIGHT GROIN SITE, WAS UNSUCCESSFUL PT STARTED HAVING DRY COUGH AND ITCHINESS PER HC NURSE. PT HAS DEMENTIA ALERT TO SELF ONLY, REPEATS HERSELF WONT STAY STILL, 4 EXT RESTRAINTS ON TO KEEP PATIENT STILL. PT HAS DIANE DRESSING ON RIGHT GROIN SITE THAT KEEPS OOZING PRESSURE KEPT FOR 20 MINS [address]ZING WONT STOP DR BORGES ORDERED FEMORAL STOP UNTIL BLEEDING STABLE ALSO HALDOL 5MG X1. PT HAS A SITTER AT THIS TIME TO MAKE SURE PT WILL STAY STILL. HEPARIN GTT DC'D THIS TIME TO CONTINUE NITRO PASTE TIL AM. VITALS SR 70'S, BP SYSTOLIC 140-160'S, SATS ABOVE 92% ON RA, AFEBRILE. PT STARTING TO FALL ASLEEP AT THIS TIME WILL MONITOR UNTIL END OF SHIFT
--- NOTE | 2020-06-25 15:46 | NUR ---
PT C/O CHEST PAIN 10/10 AND SOB/. VITALS HRR SR 77 BP 168/106 SATS ABOVE 95% ON 2L AFEBRILE. PT REMAINS CONFUSED, UNABLE TO STAY STILL. DR MEYERS MADE AWARE ORDER TO START PT ON NITRO GTT AT 20MCG/HR AND TRANSFER TO ICU.
--- NOTE | 2020-06-25 17:40 | NUR ---
PT KEPT IN HERE IN PCU ATN THIS TIME, BLOOD PRESSURE MEDS THAT PT MISSED THIS AM WAS GIVEN BP WENT DOWN TO 130'S SYSTOLIC AFTER AN HOUR NITRO PASTE ALSO SEEMED TO HELP WITH CHEST PAIN. PT C/O PAIN LAUREN ALL OVER BACK CHEST AND LEGS PT NOT CONSISTENT WITH PAIN LEVEL AND DESCRIBING PAIN, PT POINTS ON HER CHEST WHEN ASKED WHERE THE PAIN IS AT AND DESCRIBES IT PRESSURE PAIN, PT WILL THEN SAY ITS WORSE THEN ITS GONE OR NOT BAD WHEN ASKED AGAIN [address] MEYERS WAS CALLED AND MADE AWARE PT TO START ON IMDUR 30MG XL AND TO KEEP MONITOTING PT. FEM STOP IS NOW OFF OF PT, NO BLEEDING/HEMATOMA NOTED, PT ALSO TOOK OFF OF RESTRAINT NOW SEEMS MORE COMFORTABLE IN BED NOW THAT SHE CAN MOVE FREELY IN BED. PT IS NOW ASLEEP IN THE ROOM WITH 1 SITTER AT BEDSIDE. WILL MONITOR PT UNTIL END OF SHIFT
--- NOTE | 2020-06-25 19:19 | NUR ---
review of pt with nursing will follow for plan of care after heart cath. Her and may need more care.
--- NOTE | 2020-06-25 21:43 | NUR ---
LOW BP UPON CARE ASSUMPTION, PT'S BP LOW, 76/42, MAP <60. CHARGE NURSE NOTIFIED, DID MANUAL BP WHICH CONFIRMED LOW BP WAS ACCURATE. 500 ML BOLUS NS GIVEN. BP NOW 105/58, MAP >60. WILL CONTINUE TO MONITOR.
[2020-06-26 04:02] LABS: BASOPHILS ABSOLUTE AUTO 0.05 K/mm3 (0.00-0.23); BASOPHILS PERCENT AUTO 1 % (0-2); EOSINOPHILS ABSOLUTE AUTO 0.27 K/mm3 (0.00-0.68); EOSINOPHILS PERCENT AUTO 4 % (0-6); Hemoglobin 12.3 g/dL (11.5-16.0); IMMATURE GRAN ABSOLUTE AUTO 0.03 K/mm3 (0.00-0.10); IMMATURE GRAN PERCENT AUTO 0 % (0-1); LYMPHOCYTES ABSOLUTE AUTO 0.91 K/mm3 (0.84-5.20); LYMPHOCYTES PERCENT AUTO 13 % (21-46); MONOCYTES ABSOLUTE AUTO 0.77 K/mm3 (0.16-1.47); MONOCYTES PERCENT AUTO 11 % (4-13); Mean Corpuscular HGB 28.9 pg (26.0-34.0); Mean Corpuscular HGB Conc 32.4 g/dL (31.5-36.5); Mean Corpuscular Volume 89 fL (80-100); Mean Platelet Volume 11.8 fL (9.1-12.4); NEUTROPHILS ABSOLUTE AUTO 5.26 K/mm3 (1.96-9.15); NEUTROPHILS PERCENT AUTO 72 % (41-73); Platelet Count 184 K/mm3 (150-400); RDW Coefficient Variation 15.2 % (11.7-14.2); RDW Standard Deviation 49.9 fL (35.1-46.3); Red Blood Cell Count 4.25 M/mm3 (3.80-5.20); White Blood Cell Count 7.29 K/mm3 (4.00-11.30)
[2020-06-26 04:33] LABS: Bun/Creatinine Ratio 28.6 (12.0-20.0); Creatinine, Blood 1.4 mg/dL (0.40-1.00); Magnesium, Blood 2.5 mg/dL (1.6-2.4); Potassium, Blood 4.3 mmol/L (3.5-5.5); Troponin I 0.104 ng/mL (0.000-0.040)
--- NOTE | 2020-06-26 06:01 | NUR ---
SHIFT SUMMARY NO ACUTE CHANGES THIS SHIFT. PT ALERT, ORIENTED TO SELF. FOLLOWS DIRECTIONS. NEEDS TO BE REMINDED OFTEN WHERE SHE IS AND WHY. SP02>92% ON 3L NC. PT WORE CPAP PART OF NIGHT. TELEMETRY READS SR HR 48-60'S. PT HAD LOW BP AT BEGINNING OF SHIFT, SEE PREVIOUS NOTE. VSS NOW. PT DENIED PAIN. PT UP TO BSC THIS SHIFT TO VOID. PT HAS R GROIN SITE W/ DRIED BLEEDING ON BANDAGE, CIRCLED FROM PREVIOUS SHIFT. BLEEDING HAS NOT GROWN PAST DRAWN [place]. PT SLEPT T/O NIGHT. CALL LIGHT IN REACH. CAMERA ON. BED ALARM ON. WILL GIVE REPORT TO ONCOMING NURSE.
--- NOTE | 2020-06-26 08:00 | NUR ---
pt laying in bed sleeping, wakes, but returns to sleep when left undisturbed, will wait until awake to bring medications. v.s. stable, lungs are clear a bit dim in bases, resp even and unlabored, no cough noted, hrr, tele in place runnign sr per monitor, see strip, no edema noted, ppp+1, cap refill <3sec, vs stable, afebrile, iv site is clear and patent, to left hand, s.l. at this time, btx4, abd flat soft notnender, voids without diff, skin c/w/d, maew, sandrine, call light in reach.
--- NOTE | 2020-06-26 16:18 | NUR ---
Pt admitted to hospital with NSTEMI [place]. Pt's medical history and comorbidities include: HTN, CAD, CHF with EF of 25-30%, Cardiomyopathy, CDK 3, AMANDA, Dementia, Hyperlipidemia, Carotid Stenosis, IBS, Diverticulosis, Raynaud Disease, and GERD. Spoke with Bedside FRANNIE Holloway and discussed case. Pt unable to undergo cardiac procedure and has been experiencing significant agitation. Pt resting in bed and is pleasantly confused. Pt is A&OX2. Unable to verbalize appropriate reason for hospital stay and current year. Pt appears comfortable with no S/S of distress at this time. Spouse Fidencio at bedside. Assessed Fidencio's understanding of Pt's condition and MD recommendations. Fidencio confirms understanding of hospice being recommended. Educated on hospice and comfort care philosophy with V/U made by Fidencio. Offered therapeutic listening and answered questions. Discussed the potential need for caregiver support for Pt. Fidencio reports inadequate support from friends or family. Discussed the importance to review finances to determine if he can hire caregiver. Completed POLST with Fidencio. Pt's wishes are DNR and Comfort Measures Only. Provided list of Hospice Agencies to choose from. Fidencio expresses appreciation of visist and reports no other concerns at this time. Spoke with Dr Delcid and discussed case. Placed comfort care order. Will continue PO cardiac medications for comfort. PPS 50% ADLs 3/6 FAST 6B Palliative Care will remain available for supportive visits. Placed Hospice Referral
--- NOTE | 2020-06-26 18:33 | NUR ---
pt is much more cooperative and pleasant this evening, she has been made comfort care, call light in reach.
--- NOTE | 2020-06-27 05:13 | NUR ---
SHIFT SUMMARY NO ACUTE CHANGES THIS SHIFT. PT ALERT, ORIENTED TO SELF. NEEDS REMINDING WHERE SHE IS AND WHY. PT FOLLOWS DIRECTIONS. SP02>92% ON 3L NC. TELEMETRY READS SR, HR 60'S. PT UP TO BATHROOM TONIGHT TO VOID AND HAVE ONE MED BROWN BM. PT DENIED PAIN. PT COMFORT CARE STATUS. SLEPT MOST OF NIGHT. CALL LIGHT IN REACH. BED ALARM ON. WILL GIVE REPORT TO ONCOMING NURSE.
--- NOTE | 2020-06-27 07:54 | NUR ---
PT LAYING IN BED AWAKE A/OX3, PLEASANT THIS AM, LUNGS ARE CLEAR DIM IN BASES, RESP EVEN AND UNLABORED, NO COUGH NOTED, HRR, NO EDEMA NOTED, PPP+1, CAP REFILL <3SEC, VS STABLE, AFEBRILE, IV SITE IS CLEAR AND PATENT, BTX4, ABD FLAT SOFT NONTENDER, VOIDS WITHOUT DIFF, SKIN C/W/D, MAEW, LEE, CALL LIGHT IN REACH. IS COMFORT CARE AT THIS TIME, WILL BE MOVING TO MEDICAL FLOOR SOON REPORT GIVEN.
--- NOTE | 2020-06-27 08:20 | NUR ---
PT IS BEING TRANSFERED TO MEDICAL FLOOR, REPORT GIVEN TO ELODIA KATHLEEN, WILL TRANSFER VIA WHEELCHAIR WITH OPERATIONS LEADER IN ATTENDENCE WITH ALL HER BELONGINGS.
--- NOTE | 2020-06-27 08:45 | NUR ---
PT TRANSFERRED TO ROOM 0835, LYING IN BED TALKING. PLEASANT CONFUSED BED IN LOW POSITION, CALLLITE IN REACH, BED ALARM ONFOR SAFETY
--- NOTE | 2020-06-27 10:08 | NUR ---
DR WRIGHT IN , CHNGE NITROBID OINTMENT TO PRN. DONE
--- NOTE | 2020-06-27 10:23 | NUR ---
Received call from Pt's spouse tana this AM reporting choice of [facility]. Fidencio plans to visit today. Spoke with Caremanager [place] and reported family's wishes for [facility]. Pt resting in bed upon arrival. Pt denies pain and dyspnea at this time. Pt appears comfortable with no S/S of distress at this time. Plan: Will obtain MD signature for POLST. Palliative Care will remain available for supportive visits.
--- NOTE | 2020-06-27 10:50 | NUR ---
PT RESTING IN BED. WATCHING TV. OCC DOZING. PRESENTLY CALLING . BED IN LOW POSITION, CALL LITE IN REACH, BED ALARM ON FOR SAFETY
[2020-06-27] MEDS ORDERED: Isosorbide Mono30 MG PO (15:09)
--- NOTE | 2020-06-27 15:33 | NUR ---
DISCHARGE REVIEWD WITH PT AND HUSB. IV PULLED INTACT. NO TELE. PT AND HUSB NOTIFIED HOSPICE TO BE THERE AT HOME MON OR TUES. PT AND HUSB VERBLIZED UNDERSTANDING MED AND INST.
--- NOTE | 2020-06-27 15:35 | NUR ---
PT WHEELED TO DOOR AT 3125
== END 2020-06-27 15:35 | disposition hospice, home (50) | DRG 281 ==
LOC: ER 05:26 → MEDS 10:18 → ER 11:50 → MEDS 12:09 → PCU 06-25 13:50 → MEDS 06-27 08:29 → ENPENDDIS 06-27 15:00 → MEDS 06-27 15:35
PROVIDERS: Emergency Medicine; Nurse Practitioner Acute Care; ADMIT Family Medicine
PROC: 4A023N6 Measurement of Cardiac Sampling and Pressure, Right Heart, Percutaneous Approach (ICD-10-PCS; principal; 2020-06-25)
DX: I21.4 Non-ST elevation (NSTEMI) myocardial infarction (principal); I13.0 Hypertensive heart and chronic kidney disease with heart failure and stage 1 through stage 4 chronic kidney disease, or unspecified chronic kidney disease; I50.22 Chronic systolic (congestive) heart failure; I42.9 Cardiomyopathy, unspecified; Z20.822 Contact with and (suspected) exposure to COVID-19; Z66 Do not resuscitate; I35.0 Nonrheumatic aortic (valve) stenosis; N18.30 Chronic kidney disease, stage 3 unspecified; I25.10 Atherosclerotic heart disease of native coronary artery without angina pectoris; G47.33 Obstructive sleep apnea (adult) (pediatric); E66.9 Obesity, unspecified; K58.9 Irritable bowel syndrome, unspecified; I27.20 Pulmonary hypertension, unspecified; G40.909 Epilepsy, unspecified, not intractable, without status epilepticus; K21.9 Gastro-esophageal reflux disease without esophagitis; J44.9 Chronic obstructive pulmonary disease, unspecified; F03.90 Unspecified dementia, unspecified severity, without behavioral disturbance, psychotic disturbance, mood disturbance, and anxiety; Z68.31 Body mass index [BMI] 31.0-31.9, adult; Z87.19 Personal history of other diseases of the digestive system; Z95.1 Presence of aortocoronary bypass graft; Z90.49 Acquired absence of other specified parts of digestive tract; Z99.81 Dependence on supplemental oxygen; Z99.89 Dependence on other enabling machines and devices; Z79.82 Long term (current) use of aspirin; Z79.899 Other long term (current) drug therapy
CPT/HCPCS: 0241U; 36415; 71046; 80048; 80053; 83735; 84484; 85025; 85027; 85610; 85730; 93005; 93010; 93456; 94640; 94660; 94762; 99285-25; A9270; C1760; C1769; C1894; C8929; J1200; J1630; J1644; J7030; J7040; J7050; Q9957; Q9967

== ENCOUNTER 2020-09-06 22:59 | Observation (INO) | payer OTHER ==
[~2020-09-06] VITALS: Ht 160 cm; Wt 68.2 kg
[~2020-09-06 22:59] MED LIST changes: +Isosorbide Mono30 MG PO
[2020-09-07 00:40] LABS: BASOPHILS ABSOLUTE AUTO 0.07 K/mm3 (0.00-0.23); BASOPHILS PERCENT AUTO 1 % (0-2); EOSINOPHILS ABSOLUTE AUTO 0.23 K/mm3 (0.00-0.68); EOSINOPHILS PERCENT AUTO 3 % (0-6); Hematocrit 46.5 % (33.0-51.0); Hemoglobin 15.3 g/dL (11.5-16.0); IMMATURE GRAN ABSOLUTE AUTO 0.03 K/mm3 (0.00-0.10); IMMATURE GRAN PERCENT AUTO 0 % (0-1); LYMPHOCYTES ABSOLUTE AUTO 1.35 K/mm3 (0.84-5.20); LYMPHOCYTES PERCENT AUTO 15 % (21-46); MONOCYTES ABSOLUTE AUTO 1.01 K/mm3 (0.16-1.47); MONOCYTES PERCENT AUTO 12 % (4-13); Mean Corpuscular HGB 28.6 pg (26.0-34.0); Mean Corpuscular HGB Conc 32.9 g/dL (31.5-36.5); Mean Corpuscular Volume 87 fL (80-100); Mean Platelet Volume 11.7 fL (9.1-12.4); NEUTROPHILS PERCENT AUTO 69 % (41-73); Platelet Count 224 K/mm3 (150-400); RDW Coefficient Variation 14.7 % (11.7-14.2); RDW Standard Deviation 46.9 fL (35.1-46.3); Red Blood Cell Count 5.35 M/mm3 (3.80-5.20); White Blood Cell Count 8.79 K/mm3 (4.00-11.30)
[2020-09-07 00:57] LABS: International Normalized Ratio 0.99; Prothrombin Time Results 10.7 Sec (9.7-11.5)
[2020-09-07 01:49] LABS: Albumin, Blood 3.7 g/dL (3.4-5.0); Albumin/Globulin Ratio 0.8 (0.8-1.8); Bilirubin, Total 0.5 mg/dL (0.1-1.0); Bun/Creatinine Ratio 23.5 (12.0-20.0); Calcium, Blood 10.3 mg/dL (8.5-10.1); Creatinine, Blood 1.19 mg/dL (0.40-1.00); Globulin, Blood 4.4 g/dL (2.2-4.0); Total Protein, Blood 8.1 g/dL (6.4-8.2)
[2020-09-07 03:54] LABS: Hematocrit 43.7 % (33.0-51.0); Hemoglobin 14.5 g/dL (11.5-16.0); Mean Corpuscular HGB Conc 33.2 g/dL (31.5-36.5); Mean Corpuscular Volume 87 fL (80-100); Mean Platelet Volume 11.3 fL (9.1-12.4); Platelet Count 192 K/mm3 (150-400); RDW Coefficient Variation 14.4 % (11.7-14.2); RDW Standard Deviation 45.8 fL (35.1-46.3); White Blood Cell Count 7.28 K/mm3 (4.00-11.30)
--- NOTE | 2020-09-07 04:08 | NUR ---
SHIFT SUMMARY REPORT RECIEVED FROM JHONNY KATHLEEN. PATIENT TO ROOM FROM ED @0215. PATIENT IS ALERT AND ORIENTED TO SELF ONLY, HX SEVERE DEMENTIA. PATIENT IS VERY FORGETFULL ASKING WHERE SHE IS AND WHY EVERY COUPLE OF MINUTES. BECOMES EASILY ANXIOUS AND AGITATED AT TIMES. 1 PERSON MINIMAL ASSISTANCE TO BEDSIDE COMMODE. URINE MIXED WITH SMALL BM WITH BRIGHT RED BLOOD. UNABLE TO GET RELIABLE HISTORY FROM PT WENT HOME BEFORE PATIENT WAS TRANSFERRED TO PCU. TALKED WITH LE FROM [facility] ABOUT PT BEING ADMITTED TO THE HOSPITAL. 02 SATS 99% ON RA. VSS, NO ACUTE CHANGES.BED ALARM ON, CALL LIGHT IN REACH.
[2020-09-07 04:25] LABS: Bun/Creatinine Ratio 21.7 (12.0-20.0); Creatinine, Blood 1.15 mg/dL (0.40-1.00); Potassium, Blood 3.6 mmol/L (3.5-5.5)
--- NOTE | 2020-09-07 05:16 | NUR ---
PATIENT HAD SECOND BOWEL MOVEMENT SINCE ARRIVING TO THE UNIT WHICH WAS BRIGHT RED WITH MAROON CLOT LIKE CLUMPS.
--- NOTE | 2020-09-07 06:15 | NUR ---
PATIENT VERY AGITATED THROWING REMOTE AND TELE BOX AND COMPLAINING OF ABDOMINAL PAIN. CALLED HOSPITALIST AND MEDICATED PER EMAR FOR ANXIETY. PT HAS EXTENSIVE ALLERGIES TO NARCOTICS.
--- NOTE | 2020-09-07 09:45 | NUR ---
Care Assumed 0700 Pt A/O to self and year. Pt anxious, states."My left me here and took all my clothing/purses." Pt educated on why she is in the hospital but continues to be anxious/easily agitated. On RA. VSS. SR with primary BBB. VSS. Will continue to monitor. Call light within reach. Charge nurse spoke to patients . Fidencio, and he is ok with pt recieving blood products if needed. Pt apears more agitated/anxious when speaking to on phone, asking him why he left her here. Pts to come in to see patient soon.
--- NOTE | 2020-09-07 09:53 | NUR ---
Provider Call Charge nurse spoke Dr. Chandler and patient started on clear liquid. Plan for discharge today, waiting on [facility].
--- NOTE | 2020-09-07 10:16 | NUR ---
Hospice/Pallative care Pallative care nurse checking in. Jelena spoke to poolroom/poolhall manager, Jacqueline, and hospice nurse would like to be called after pt discharge. poolroom/poolhall manager to follow up at home with patient and . Phone number [phone]. Charge nurse spoke to patients and it sounds like he may be confused on who to contact when patient has symptoms. Will educate when Fidencio, pts , arrives.
--- NOTE | 2020-09-07 10:44 | NUR ---
BM with blood Pt had small liquid red BM with clots. Attends changed, joby care provided. Pt sitting up in chair, watching TV. Two person assist. Lab at bedside to draw blood.
[2020-09-07 11:05] LABS: Hematocrit 41.7 % (33.0-51.0); Hemoglobin 13.8 g/dL (11.5-16.0)
--- NOTE | 2020-09-07 11:53 | NUR ---
Provider Visit Dr. Montgomery in to see patient. Provider would like patient to have soft lunch and reassess in one hour for possible discharge. Pt had 400 ml of liquid red BM with clots. Pt able to ambulate to bedside commode. Pericare completed.
--- NOTE | 2020-09-07 15:31 | NUR ---
Discharge 1434 Patient discharged home with via wheelchair. Discharge plan discussed via PFF (patient flow certified scrub tech). Pt educted on diet and meals of wheels phone number provided. Dr. Montgomery in to see patient earlier and educated on discharge plan. Pt provided soft diet but unable to tolerate, states having abd pain. Able to tolerate ensure and pudding well. Spoke to Jacqueline legal support analyst via phone. Updated on patient being discharged, pt continues to have blood in bowels but stable to be discharged. Asked nurse to follow up on meals on wheels and see if patient tolerates diet.
== END 2020-09-07 14:36 | disposition hospice, home (50) ==
LOC: ER 22:59 → PCU 23:00
PROVIDERS: Emergency Medicine; Internal Medicine; ADMIT Internal Medicine
DX: K62.5 Hemorrhage of anus and rectum (principal); I13.0 Hypertensive heart and chronic kidney disease with heart failure and stage 1 through stage 4 chronic kidney disease, or unspecified chronic kidney disease; I50.22 Chronic systolic (congestive) heart failure; N18.30 Chronic kidney disease, stage 3 unspecified; I25.10 Atherosclerotic heart disease of native coronary artery without angina pectoris; G47.33 Obstructive sleep apnea (adult) (pediatric); K21.9 Gastro-esophageal reflux disease without esophagitis; J42 Unspecified chronic bronchitis; E78.5 Hyperlipidemia, unspecified; I42.9 Cardiomyopathy, unspecified; I73.00 Raynaud's syndrome without gangrene; F03.90 Unspecified dementia, unspecified severity, without behavioral disturbance, psychotic disturbance, mood disturbance, and anxiety; Z87.891 Personal history of nicotine dependence; Z95.1 Presence of aortocoronary bypass graft
CPT/HCPCS: 36415; 80048; 80053; 85014; 85018; 85025; 85027; 85610; 86850; 86900; 86901; 96374; 99285; G0378; J2060; J7120

== ENCOUNTER 2020-10-23 11:20 | Emergency (ER) | payer OTHER ==
[~2020-10-23] VITALS: Ht 160 cm; Wt 78.0 kg
[~2020-10-23 11:20] MED LIST changes: +LOSA50 PO
[2020-10-23 12:01] LABS: BASOPHILS ABSOLUTE AUTO 0.05 K/mm3 (0.00-0.23); BASOPHILS PERCENT AUTO 1 % (0-2); EOSINOPHILS ABSOLUTE AUTO 0.28 K/mm3 (0.00-0.68); EOSINOPHILS PERCENT AUTO 4 % (0-6); IMMATURE GRAN ABSOLUTE AUTO 0.01 K/mm3 (0.00-0.10); IMMATURE GRAN PERCENT AUTO 0 % (0-1); LYMPHOCYTES PERCENT AUTO 16 % (21-46); MONOCYTES ABSOLUTE AUTO 0.51 K/mm3 (0.16-1.47); MONOCYTES PERCENT AUTO 8 % (4-13); Mean Corpuscular HGB 29.1 pg (26.0-34.0); Mean Corpuscular HGB Conc 32.5 g/dL (31.5-36.5); Mean Corpuscular Volume 90 fL (80-100); Mean Platelet Volume 11.1 fL (9.1-12.4); NEUTROPHILS ABSOLUTE AUTO 4.52 K/mm3 (1.96-9.15); NEUTROPHILS PERCENT AUTO 71 % (41-73); Platelet Count 189 K/mm3 (150-400); RDW Coefficient Variation 14.6 % (11.7-14.2); RDW Standard Deviation 48.9 fL (35.1-46.3); Red Blood Cell Count 4.47 M/mm3 (3.80-5.20); White Blood Cell Count 6.37 K/mm3 (4.00-11.30)
[2020-10-23 12:30] LABS: Albumin, Blood 3.3 g/dL (3.4-5.0); Albumin/Globulin Ratio 0.9 (0.8-1.8); Bilirubin, Total 0.6 mg/dL (0.1-1.0); Bun/Creatinine Ratio 23.1 (12.0-20.0); Calcium, Blood 9.9 mg/dL (8.5-10.1); Creatinine, Blood 1.6 mg/dL (0.40-1.00); Globulin, Blood 3.6 g/dL (2.2-4.0); Potassium, Blood 4.3 mmol/L (3.5-5.5); Total Protein, Blood 6.9 g/dL (6.4-8.2); Troponin I 0.101 ng/mL (0.000-0.040)
[2020-10-23] MEDS ORDERED: ECOTRIN325 MG PO (13:17)
[2020-10-23] MEDS ORDERED: MELATONIN5 M4 PO (13:17)
[2020-10-23] MEDS ORDERED: Pravastatin Sod80 MG PO (13:17)
[2020-10-23] MEDS ORDERED: VITAMIN D31000 UNI1 PO (13:18)
[2020-10-23] MEDS ORDERED: PLAVIX75 MG PO (13:18)
== END 2020-10-23 14:17 | disposition home or self-care (01) ==
LOC: ER 11:20
PROVIDERS: Emergency Medicine
DX: R55 Syncope and collapse (principal); I10 Essential (primary) hypertension; J44.9 Chronic obstructive pulmonary disease, unspecified; I25.810 Atherosclerosis of coronary artery bypass graft(s) without angina pectoris; Z79.82 Long term (current) use of aspirin; Z79.02 Long term (current) use of antithrombotics/antiplatelets; Z79.899 Other long term (current) drug therapy; Z95.1 Presence of aortocoronary bypass graft
CPT/HCPCS: 36415; 70450; 80053; 84484; 85025; 93005; 93010; 99285-25

== ENCOUNTER 2021-02-28 22:45 | Emergency (ER) | payer OTHER ==
[~2021-02-28] VITALS: Ht 162.6 cm; Wt 68.0 kg
[~2021-02-28 22:45] MED LIST changes: +ECOTRIN325 MG PO; +MELATONIN5 M4 PO; +PLAVIX75 MG PO; +VITAMIN D31000 UNI1 PO
[2021-02-28 23:20] LABS: BASOPHILS ABSOLUTE AUTO 0.05 K/mm3 (0.00-0.23); BASOPHILS PERCENT AUTO 1 % (0-2); EOSINOPHILS ABSOLUTE AUTO 0.21 K/mm3 (0.00-0.68); EOSINOPHILS PERCENT AUTO 3 % (0-6); Hemoglobin 14.1 g/dL (11.5-16.0); IMMATURE GRAN ABSOLUTE AUTO 0.02 K/mm3 (0.00-0.10); IMMATURE GRAN PERCENT AUTO 0 % (0-1); LYMPHOCYTES ABSOLUTE AUTO 1.23 K/mm3 (0.84-5.20); LYMPHOCYTES PERCENT AUTO 20 % (21-46); MONOCYTES ABSOLUTE AUTO 0.66 K/mm3 (0.16-1.47); MONOCYTES PERCENT AUTO 11 % (4-13); Mean Corpuscular HGB 30.1 pg (26.0-34.0); Mean Corpuscular HGB Conc 33.6 g/dL (31.5-36.5); Mean Corpuscular Volume 90 fL (80-100); Mean Platelet Volume 12.5 fL (9.1-12.4); NEUTROPHILS ABSOLUTE AUTO 4.13 K/mm3 (1.96-9.15); NEUTROPHILS PERCENT AUTO 66 % (41-73); Platelet Count 156 K/mm3 (150-400); RDW Coefficient Variation 14.7 % (11.7-14.2); RDW Standard Deviation 48.2 fL (35.1-46.3); Red Blood Cell Count 4.69 M/mm3 (3.80-5.20)
[2021-02-28 23:45] LABS: Albumin, Blood 3.1 g/dL (3.4-5.0); Albumin/Globulin Ratio 0.8 (0.8-1.8); Bilirubin, Total 2.2 mg/dL (0.1-1.0); Bun/Creatinine Ratio 16.3 (12.0-20.0); Calcium, Blood 9.6 mg/dL (8.5-10.1); Creatinine, Blood 1.41 mg/dL (0.40-1.00); Globulin, Blood 4.1 g/dL (2.2-4.0); Potassium, Blood 3.8 mmol/L (3.5-5.5); Total Protein, Blood 7.2 g/dL (6.4-8.2); Troponin I 0.173 ng/mL (0.000-0.040)
== END 2021-03-01 04:12 | disposition home or self-care (01) ==
LOC: ER 22:45
PROVIDERS: Student in an Organized Health Care Education/Training Program
DX: R55 Syncope and collapse (principal); I25.10 Atherosclerotic heart disease of native coronary artery without angina pectoris; I10 Essential (primary) hypertension; J44.9 Chronic obstructive pulmonary disease, unspecified; E78.5 Hyperlipidemia, unspecified; K21.9 Gastro-esophageal reflux disease without esophagitis; G47.33 Obstructive sleep apnea (adult) (pediatric); Z88.8 Allergy status to other drugs, medicaments and biological substances; Z88.5 Allergy status to narcotic agent; Z79.899 Other long term (current) drug therapy; Z79.82 Long term (current) use of aspirin; Z79.02 Long term (current) use of antithrombotics/antiplatelets; Z87.891 Personal history of nicotine dependence
CPT/HCPCS: 36415; 71046; 80053; 84484; 85025; 93005; 93010; 99284-25

== ENCOUNTER 2021-07-07 03:10 | Emergency (ER) | payer OTHER ==
[~2021-07-07] VITALS: Ht 160 cm; Wt 81.7 kg
[~2021-07-07 03:10] MED LIST changes: +CEPH500 PO
[2021-07-07] MEDS ORDERED: HYDHCL25 PO (03:25)
== END 2021-07-07 03:40 | disposition home or self-care (01) ==
LOC: ER 03:10
DX: L29.9 Pruritus, unspecified (principal); I10 Essential (primary) hypertension
CPT/HCPCS: 99282; A9270

== ENCOUNTER 2021-07-24 00:31 | Emergency (ER) | payer OTHER ==
[~2021-07-24] VITALS: Ht 160 cm; Wt 79.8 kg
[~2021-07-24 00:31] MED LIST changes: +HYDHCL25 PO
[2021-07-24] MEDS ORDERED: BENADRYL25 MG PO (01:31)
== END 2021-07-24 02:00 | disposition home or self-care (01) ==
LOC: ER 00:31
DX: L29.9 Pruritus, unspecified (principal); I10 Essential (primary) hypertension; J44.9 Chronic obstructive pulmonary disease, unspecified; E78.5 Hyperlipidemia, unspecified; I25.2 Old myocardial infarction; Z95.1 Presence of aortocoronary bypass graft; Z87.891 Personal history of nicotine dependence; Z88.5 Allergy status to narcotic agent; Z88.8 Allergy status to other drugs, medicaments and biological substances
CPT/HCPCS: A9270

== ENCOUNTER 2021-10-05 14:13 | Emergency (ER) | payer OTHER ==
[~2021-10-05] VITALS: Ht 160 cm; Wt 64.9 kg
[~2021-10-05 14:13] MED LIST changes: +BENADRYL25 MG PO
[2021-10-05 14:34] LABS: BASOPHILS ABSOLUTE AUTO 0.06 K/mm3 (0.00-0.23); BASOPHILS PERCENT AUTO 1 % (0-2); EOSINOPHILS ABSOLUTE AUTO 0.26 K/mm3 (0.00-0.68); EOSINOPHILS PERCENT AUTO 3 % (0-6); Hematocrit 42.3 % (33.0-51.0); IMMATURE GRAN ABSOLUTE AUTO 0.03 K/mm3 (0.00-0.10); IMMATURE GRAN PERCENT AUTO 0 % (0-1); LYMPHOCYTES ABSOLUTE AUTO 1.17 K/mm3 (0.84-5.20); LYMPHOCYTES PERCENT AUTO 13 % (21-46); MONOCYTES ABSOLUTE AUTO 0.85 K/mm3 (0.16-1.47); MONOCYTES PERCENT AUTO 9 % (4-13); Mean Corpuscular HGB 29.2 pg (26.0-34.0); Mean Corpuscular HGB Conc 33.1 g/dL (31.5-36.5); Mean Corpuscular Volume 88 fL (80-100); Mean Platelet Volume 11.1 fL (9.1-12.4); NEUTROPHILS ABSOLUTE AUTO 6.96 K/mm3 (1.96-9.15); NEUTROPHILS PERCENT AUTO 75 % (41-73); Platelet Count 202 K/mm3 (150-400); RDW Coefficient Variation 14.4 % (11.7-14.2); White Blood Cell Count 9.33 K/mm3 (4.00-11.30)
[2021-10-05 14:54] LABS: Albumin/Globulin Ratio 0.7 (0.8-1.8); Bilirubin, Total 1.5 mg/dL (0.1-1.0); Bun/Creatinine Ratio 16.6 (12.0-20.0); Calcium, Blood 10.1 mg/dL (8.5-10.1); Creatinine, Blood 1.45 mg/dL (0.40-1.00); Globulin, Blood 4.1 g/dL (2.2-4.0); Total Protein, Blood 7.1 g/dL (6.4-8.2)
[2021-12-14] MEDS ORDERED: Seroquel Xr50 MG PO (15:54)
== END 2021-10-05 16:41 | disposition home or self-care (01) ==
LOC: ER 14:13
PROVIDERS: Emergency Medicine
DX: R42 Dizziness and giddiness (principal); I10 Essential (primary) hypertension; J44.9 Chronic obstructive pulmonary disease, unspecified; Z95.2 Presence of prosthetic heart valve; Z87.891 Personal history of nicotine dependence; Z79.82 Long term (current) use of aspirin; Z79.899 Other long term (current) drug therapy
CPT/HCPCS: 36415; 71045; 80053; 83735; 83880; 84484; 85025; 93005; 93010; 99284-25

== ENCOUNTER 2021-12-09 16:35 | Observation (INO) | payer OTHER ==
[~2021-12-09] VITALS: Ht 160 cm; Wt 63.1 kg
[2021-12-09 18:02] LABS: BASOPHILS ABSOLUTE AUTO 0.04 K/mm3 (0.00-0.23); BASOPHILS PERCENT AUTO 1 % (0-2); EOSINOPHILS ABSOLUTE AUTO 0.05 K/mm3 (0.00-0.68); EOSINOPHILS PERCENT AUTO 1 % (0-6); Hematocrit 39.8 % (33.0-51.0); Hemoglobin 13.3 g/dL (11.5-16.0); IMMATURE GRAN ABSOLUTE AUTO 0.01 K/mm3 (0.00-0.10); IMMATURE GRAN PERCENT AUTO 0 % (0-1); LYMPHOCYTES ABSOLUTE AUTO 0.95 K/mm3 (0.84-5.20); LYMPHOCYTES PERCENT AUTO 14 % (21-46); MONOCYTES ABSOLUTE AUTO 0.42 K/mm3 (0.16-1.47); MONOCYTES PERCENT AUTO 6 % (4-13); Mean Corpuscular HGB 29.6 pg (26.0-34.0); Mean Corpuscular HGB Conc 33.4 g/dL (31.5-36.5); Mean Corpuscular Volume 88 fL (80-100); Mean Platelet Volume 10.9 fL (9.1-12.4); NEUTROPHILS PERCENT AUTO 79 % (41-73); Platelet Count 195 K/mm3 (150-400); RDW Coefficient Variation 14.8 % (11.7-14.2); RDW Standard Deviation 48.5 fL (35.1-46.3); White Blood Cell Count 6.97 K/mm3 (4.00-11.30)
[2021-12-09 18:49] LABS: Albumin, Blood 3.4 g/dL (3.4-5.0); Albumin/Globulin Ratio 1.1 (0.8-1.8); Bilirubin, Total 1.2 mg/dL (0.1-1.0); Bun/Creatinine Ratio 14.7 (12.0-20.0); Creatinine, Blood 1.43 mg/dL (0.40-1.00); Globulin, Blood 3.2 g/dL (2.2-4.0); Magnesium, Blood 2.2 mg/dL (1.6-2.4); Potassium, Blood 4.2 mmol/L (3.5-5.5); Total Protein, Blood 6.6 g/dL (6.4-8.2)
--- NOTE | 2021-12-09 23:46 | NUR ---
PATIENT ADMITTED TO THE FLOOR. MED STATUS. ABLE TO GET UP FROM WHEELCHAIR AND WALK TO THE BED. VERY CONFUSED AND DOES NOT KNOW WHY SHE IS IN HERE. STATES 2 MEN CAME INTO HER HOME THIS MORNING AND PUSHED HER DOWN ON THE BED SPRAYING HER WITH SOMETHING AND SHE DOES NOT KNOW WHY HER WAS LAUGHING AT IT. SHE REPEATED THIS SEVERAL TIMES WHEN ASKED ABOUT HER CHEST PAIN. SHE DENIES ANY PAIN AT THIS TIME. MONITOR STATES SINUS IN THE 60'S, FIRST DEGREE BLOCK. LS CLEAR. SHE GETS VERY ANXIOUS EASILY. SHE ABSOLUTELY INSISTED ON GETTING HER IV OUT IT HURT EVERY TIME SHE MOVED ARM. NEW IV WAS STARTED ON THE RIGHT SIDE. SHE TOLERATED WELL. GOT HER CALMED DOWN, SHE IS LAYING IN BED RESTING NOW. BED ALARM IS ON. WILL CONTINUE TO VANESA.
--- NOTE | 2021-12-10 02:00 | NUR ---
BED ALARM WAS SOUNDING, PATIENT FOUND STANDING NEXT TO THE BED CORDS UNPLUGGED. CONFUSED AND ASKING WHERE SHE IS AT AND HOW SHE GOT HERE. ATTEMPTED TO RE-ORIENT HER BUT SHE CONTINUED TO STATE THAT SHE WAS OUT WITH HER AT A [employer]UN[employer] AND HE LEFT HER. SHE HAD TO GO TO THE BATHROOM. AFTERWARDS GOT HER BACK TO BED AND ALARM WAS PLACED ON.
--- NOTE | 2021-12-10 06:22 | NUR ---
SHIFT SUMMARY: SEVERLY CONFUSED, NOT KNOWING WHY SHE IS HERE OR HOW SHE GOT HERE. ADMITTED FOR CHEST PAIN THAT SINCE SHE HAS GOTTEN TO THE UNIT HAS DENIED. SHE REPORTS FEELING FINE. SLEPT MOST OF THE NIGHT WITH OCCATIONAL AWAKENINGS. SET OFF THE BED ALARM ONCE. SINUS WITH 1ST DEGREE BUNDLE BRANCH BLOCK, OCCTIONALLY WITH BRADYCARDIA AND PVC'S. TRACE EDEMA IN LEGS. VITALS HAVE BEEN STEADY. INDEPENDENT AND STEADY ON FEET UP TO COMMODE, DOES NOT USE CALL LIGHT. TROPONIN WAS SLIGHTLY ELEVATED BUT ACCORDING TO NOTES THAT IS WHERE SHE NORMALLY IS. NO OTHER CONCERNS TO NOTE. WILL REPORT TO DAYSHIFT. BED ALARM IS ON.
--- NOTE | 2021-12-10 11:01 | NUR ---
SPiritual Care Request SO of Pt. requested Father Leon to visit. Since Father Leon is not available, I have added Pt. to the [facility] visit roster. This production planning manager will visit Pt. once medical staff has her situated in the room.
[2021-12-10] MEDS ORDERED: ASPI81CH PO (14:57)
--- NOTE | 2021-12-10 16:31 | NUR ---
DISCHARGE PT SPOUSE AT BEDSIDE, ALL DISCHAGE INSTRUCTIONS AND MEDICATIONS REVIEWED WITH PT AND PT SPOUSE ALEC. ALEC VERBALIZED UNDERSTANDING OF INSTRUCTIONS. PT TAKEN TO PERSONAL CAR VIA WHEEL CHAIR. ALL PT BELONGINGS SENT WITH PT.
[2021-12-14] MEDS ORDERED: Seroquel Xr50 MG PO (15:54)
== END 2021-12-10 16:20 | disposition home or self-care (01) ==
LOC: ER 16:35 → ERHOLD 16:36 → ICUW 16:36
PROVIDERS: Student in an Organized Health Care Education/Training Program; ADMIT Internal Medicine
DX: R07.89 Other chest pain (principal); J44.9 Chronic obstructive pulmonary disease, unspecified; E78.00 Pure hypercholesterolemia, unspecified; G47.33 Obstructive sleep apnea (adult) (pediatric); K21.9 Gastro-esophageal reflux disease without esophagitis; I25.2 Old myocardial infarction; I44.0 Atrioventricular block, first degree; F03.91 Unspecified dementia, unspecified severity, with behavioral disturbance; I12.9 Hypertensive chronic kidney disease with stage 1 through stage 4 chronic kidney disease, or unspecified chronic kidney disease; N18.30 Chronic kidney disease, stage 3 unspecified; Z88.8 Allergy status to other drugs, medicaments and biological substances; Z88.5 Allergy status to narcotic agent; Z95.1 Presence of aortocoronary bypass graft; Z90.49 Acquired absence of other specified parts of digestive tract; Z88.6 Allergy status to analgesic agent
CPT/HCPCS: 36415; 71045; 80053; 83735; 83880; 84484; 85025; 93005; 93010; 96372; 96374; 96375; 99285-25; A9270; G0378; J1200; J1630; J1650

== ENCOUNTER 2022-01-17 16:00 | Emergency (ER) | payer OTHER ==
[~2022-01-17] VITALS: Ht 160 cm; Wt 77.1 kg
[~2022-01-17 16:00] MED LIST changes: +Seroquel Xr50 MG PO
[2022-01-17 16:38] LABS: BASOPHILS ABSOLUTE AUTO 0.03 K/mm3 (0.00-0.23); BASOPHILS PERCENT AUTO 1 % (0-2); EOSINOPHILS ABSOLUTE AUTO 0.09 K/mm3 (0.00-0.68); EOSINOPHILS PERCENT AUTO 1 % (0-6); Hematocrit 42.8 % (33.0-51.0); Hemoglobin 14.1 g/dL (11.5-16.0); IMMATURE GRAN ABSOLUTE AUTO 0.01 K/mm3 (0.00-0.10); IMMATURE GRAN PERCENT AUTO 0 % (0-1); LYMPHOCYTES ABSOLUTE AUTO 0.97 K/mm3 (0.84-5.20); LYMPHOCYTES PERCENT AUTO 15 % (21-46); MONOCYTES ABSOLUTE AUTO 0.48 K/mm3 (0.16-1.47); MONOCYTES PERCENT AUTO 8 % (4-13); Mean Corpuscular HGB 29.1 pg (26.0-34.0); Mean Corpuscular HGB Conc 32.9 g/dL (31.5-36.5); Mean Corpuscular Volume 88 fL (80-100); Mean Platelet Volume 10.2 fL (9.1-12.4); NEUTROPHILS ABSOLUTE AUTO 4.73 K/mm3 (1.96-9.15); NEUTROPHILS PERCENT AUTO 75 % (41-73); Platelet Count 212 K/mm3 (150-400); RDW Coefficient Variation 14.3 % (11.7-14.2); Red Blood Cell Count 4.84 M/mm3 (3.80-5.20); White Blood Cell Count 6.31 K/mm3 (4.00-11.30)
[2022-01-17 17:05] LABS: Albumin, Blood 3.5 g/dL (3.4-5.0); Bilirubin, Total 1.1 mg/dL (0.1-1.0); Bun/Creatinine Ratio 15.8 (12.0-20.0); Calcium, Blood 9.9 mg/dL (8.5-10.1); Creatinine, Blood 1.2 mg/dL (0.40-1.00); Globulin, Blood 3.6 g/dL (2.2-4.0); Potassium, Blood 4.1 mmol/L (3.5-5.5); Total Protein, Blood 7.1 g/dL (6.4-8.2)
== END 2022-01-17 20:57 | disposition home or self-care (01) ==
LOC: ER 16:00
PROVIDERS: Physician Assistant
DX: R07.2 Precordial pain (principal); R06.02 Shortness of breath; I10 Essential (primary) hypertension; J44.9 Chronic obstructive pulmonary disease, unspecified; E78.00 Pure hypercholesterolemia, unspecified; G47.33 Obstructive sleep apnea (adult) (pediatric); K21.9 Gastro-esophageal reflux disease without esophagitis; F03.90 Unspecified dementia, unspecified severity, without behavioral disturbance, psychotic disturbance, mood disturbance, and anxiety; I25.10 Atherosclerotic heart disease of native coronary artery without angina pectoris; I25.2 Old myocardial infarction; Z88.8 Allergy status to other drugs, medicaments and biological substances; Z88.5 Allergy status to narcotic agent; Z79.899 Other long term (current) drug therapy; Z79.82 Long term (current) use of aspirin
CPT/HCPCS: 36415; 71046; 80053; 83690; 84484; 85025; 93005; 93010

== ENCOUNTER → 2023-04-29 | Outpatient (CLI) | payer OTHER ==
[~2023-04-29] MED LIST changes: +LOSA25 PO; -LOSA50 PO; +QUET25 PO; -Seroquel Xr50 MG PO
[2023-04-29 11:44] LABS: Source, Urine Clean Catch
[2023-04-29 13:16] LABS: Appearance, Urine Hazy (Clear); Bilirubin, Urine Neg (Neg); Blood, Urine 1+ (Neg); Color, Urine Yellow (P-Yellow); Glucose Qualitative, Urine Neg (Neg); Ketones, Urine Neg (Neg); Leukocyte Esterase, Urine 3+ (Neg); Nitrite, Urine Neg (Neg); Protein, Urine 2+ (Neg); Specific Gravity, Urine 1.025 (1.003-1.022); Urobilinogen, Urine NORM (Normal)
[2023-04-29 13:25] LABS: Calcium Oxalate Crystals Few /hpf; White Blood Cells, Urine TNTC /hpf (0-5)
[2023-04-29 13:26] LABS: Bacteria Many /hpf; Squamous Epithelial Cells Few /hpf (Few)
== END | disposition home or self-care (01) ==
LOC: LAB SHORT 11:41 → LAB 11:41
PROVIDERS: Family Medicine
DX: N39.0 Urinary tract infection, site not specified (principal)
CPT/HCPCS: 81001; 87077; 87086; 87186